=== PATIENT | female | born 1980 | race Caucasian/White ===

== ENCOUNTER 2024-06-11 11:09 | Emergency (ER) | payer OTHER ==
[~2024-06-11] VITALS: Ht 167.6 cm; Wt 86.0 kg
--- NOTE | 2024-06-11 11:21 | ED.PDOC ---
Psychiatric HPI Comments 44 year old female CASSANDRA presents to the ED with chief complaint of anxiety. Patient reports that she was anticipating an argument occurring at home, so she started to experience an anxiety attack with associated tingling, SOB, and anxiety. Patient relays that she has history of anxiety attacks and is currently taking Zoloft 75mg. Patient denies any chest pain, dizziness, SI, or HI. 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, Medications, Allergies Information Source: Patient, Emergency Med Personnel Mode of Arrival: EMS Severity: Able to Care for Self, Able to Control Self Severity of Pain: None Severity of Mental Status: Moderate Severity of Symptoms: Moderate Timing: Hours Duration: Since onset Prehospital treatment: None Presents with: Anxiety Ingestion: None Circumstance: None Current substance abuse: None Stressors: Family History of: Anxiety Past Medical History PAST MEDICAL HISTORY: Anxiety, High Lipids Past Medical History (Other): Panic attacks Surgical History: Appendectomy, Cholecystectomy, Surgical History (Other): Laminectomy, Nasal surgery TRAFFIC SUPERINTENDENT History: Denies all TRAFFIC SUPERINTENDENT Hx Family History Family History: Reviewed,noncontributory to illness Social History Smoker: Non-Smoker Alcohol: Denies ETOH Use Drugs: Denies Drug Use Lives In: Home Constitutional: denies: chills, diaphoresis, fatigue, fever, malaise, sweats, weakness, others EENTM: denies: blurred vision, double vision, ear bleeding, ear discharge, ear drainage, ear pain, ear ringing, eye pain, eye redness, hearing loss, mouth pain, mouth swelling, nasal discharge, nose bleeding, nose congestion, nose pain, photophobia, tearing, throat pain, throat swelling, voice changes, others Respiratory: reports: shortness of breath; denies: cough, hemoptysis, ort hopnea, SOB at rest, SOB with excertion, stridor, wheezing, others Cardiovascular: denies: chest pain, dizzy spells, diaphoresis, Dyspnea on exertion, edema, irregular heart beat, left arm pain, lightheadedness, palpitations, PND, syncope, others Gastrointestinal: denies: abdomen distended, abdominal pain, blood streaked bowels, constipated, diarrhea, dysphagia, difficulty swallowing, hematemesis, melena, nausea, poor appetite, poor fluid intake, rectal bleeding, rectal pain, vomiting, others Genitourinary: denies: abnormal vagina bleeding, burning, dyspareunia, dysuria, flank pain, frequency, hematuria, incontinence, pain, , vagina discharge, urgency, others Neurological: reports: tingling; denies: dizziness, fainting, headache, left sided numbness, left sided weakness, numbness, paresthesia, pre-existing deficit, right sided numbness, right sided weakness, seizure, speech problems, tremors, weakness, others Musculoskeletal: denies: back pain, gout, joint pain, joint swelling, muscle pain, muscle stiffness, neck pain, others Integumetry: denies: bruises, change in color, change in hair/nails, dryness, laceration, lesions, lumps, rash, wounds, others Allergic/Immunocompromised: denies: Difficulty Healing, Frequent Infections, Hives, Itching, others Hematologic/Lymphatic: denies: anemia, blood clots, easy bleeding, easy bruising, swollen glands, others Endocrine: denies: excessive hunger, excessive sweating, excessive thirst, excessive urination, flushing, intolerance to cold, intolerance to heat, unexplained weight gain, unexplained weight loss, others Psychiatric: reports: anxiety, panic disorder; denies: bipolar disorder, depression, hopeless, schizophrenia, sleepless, suicidal, others All Other Systems: Reviewed and Negative Physical Exam General Appearance: Moderate Distress, Normal HEENT: Normal ENT Inspection, PERRL/EOMI Neck: Full Range of Motion, Non-Tender, Normal, Normal Inspection Respiratory: Chest Non-Tender, Lungs Clear, No Accessory Muscle Use, No Respiratory Distress, Normal Breath Sounds Cardiovascular: No Edema, No JVD, No Murmur, No Gallop, Normal Peripheral Pulses, Regular Rate/Rhythm Breast Exam: Deferred Gastrointestinal: No Organomegaly, Non Tender, No Pulsatile Mass, Normal Bowel Sounds, Soft Genitalia: Deferred Pelvic: Deferred Rectal: Deferred Extremities: No calf tenderness, Normal capillary refill, Normal inspection, Normal range of motion, Non-tender, No pedal edema Musculoskeletal : Apperance: Normal Neurologic: Alert, practical nurse II-XII nml as Tested, No Motor Deficits, Normal Affect, Normal Mood, No Sensory Deficits Cerebellar Function: Normal Reflexes: Normal Skin: Dry, Normal Color, Warm Peripheral Pulses: 3+ Radial (R), 3+ Radial (L) Lymphatic: No Adenopathy Was a procedure done? Was a procedure done?: No Psych Differential Dx Psych. Differential Dx: Anxiety X-Ray, Labs, Meds, VS Vital Signs Date Time Temp Pulse Resp B/P (MAP) Pulse Ox O2 Delivery O2 Flow Rate FiO2 06/11/24 11:51 107 18 96 Room Air 06/11/24 11:51 98.3 107 18 124/70 (88) 96 98.3 06/11/24 11:17 98.3 88 20 119/69 (86) 100 06/11/24 11:16 97 Lab Test 06/11/24 11:59 06/11/24 11:45 Range/Units Urine Color Pending Urine Clarity Pending Urine pH Pending Urine Specific [place] Pending Urine Protein Pending Urine Ketones Pending Urine Blood Pending Urine Nitrite Pending Urine Bilirubin Pending Urine Urobilinogen Pending Urine Leukocyte Esterase Pending Urine RBC Pending Urine Microscopic WBC Pending Urine Squamous Epithelial Cells Pending Urine Bacteria Pending Urine Glucose Pending Troponin I High Sensitivity < 3 L </=34 ng/L Current Medications Medications (Trade) Dose Ordered Sig/Effie Route Start Time Stop Time Status Last Admin Lorazepam (Ativan Tablet) 1 mg ONCE ONCE PO 06/11/24 11:30 06/11/24 11:31 DC 06/11/24 11:44 Patient alert. History of anxiety. Vitals stable. Answering all questions. Saturation pristine on room air. On clinical examination heart rate within normal limits. No sign of any distress. She is more calm. Possibly the argument had made her anxious. Was given Ativan. No leg swelling. No shortness a breath. No chest pain. Explained to the patient. Was told to follow up with her primary care physician. Was told to come back if there is any problem. Time of 1ST Reevaluation: 12:17 Reevaluation 1ST: Improved Patient Education/Counseling: Diagnosis, Treatment Family Education/Counseling: No Family Present Departure 1 Departure Time of Disposition: 12:31 Impression: Primary Impression: Anxiety Disposition: 01 HOME / SELF CARE / HOMELESS Condition: Good Discharged With: Self Critical Care Note Critical Care Time?: No Stability Stability form required: No Heart Score Heart Score: Heart Score Response (Comments) Value History N/A 0 EKG N/A 0 Age N/A 0 Risk Factors N/A 0 Troponin N/A 0 Total 0 I personally scribed for MATT CESPEDES MD ([email or web address]) on 06/11/24 at 11:21. Electronically submitted by Jasson Marte ([email or web address]). MATT CESPEDES MD Jun 11, 2024 11:21
--- NOTE | 2024-06-11 11:25 | ECG ---
[facility] Test Date: 2024-06-11 Test Time: 11:16:58 Pat Name: JYOTHI HERNANDEZ Department: ER Room: Gender: F Care Nurse Rn: WALLACE : 1980 Requested By: MATT CESPEDES Order Number: [id number] Reading MD: Doug Chilel Measurements Intervals [place] Rate: 97 P: 50 LA: 140 QRS: 56 QRSD: 88 T: 54 QT: 368 QTc: 468 Interpretive Statements Sinus rhythm Low voltage, precordial leads Electronically Signed On 06-14-2024 17:37:02 PST by Doug Chilel Please click the below link to view image of tracing.
[2024-06-11] MEDS: LORazepam 0.5 MG TAB PO ONE (11:44)
[2024-06-11 12:21] LABS: Urine Bacteria None Seen /hpf (None Seen)
[2024-06-11 12:48] LABS: Urine Blood Negative /uL (Negative); Urine Clarity Clear (Clear); Urine Color Colorless (Yellow); Urine Protein, UAD Negative (Negative); Urine Specific Gravity 1.006 (1.001-1.035); Urine Squamous Epithelial Cell FEW /hpf (<5); Urine Urobilinogen Normal (Negative); Urine pH 5.5 (5.0-9.0)
[2024-06-11 13:08] VITALS: BP 115/73; PULSE 107; RESP 16; TEMP 98.7; O2SAT 98
== END 2024-06-11 13:11 | disposition home or self-care (01) ==
LOC: EDBD 11:09 → ER 11:15
DX: F41.9 Anxiety disorder, unspecified (principal); R06.02 Shortness of breath; E78.5 Hyperlipidemia, unspecified; Z90.49 Acquired absence of other specified parts of digestive tract; Z98.890 Other specified postprocedural states
CPT/HCPCS: 36415; 81001; 84484; 93005